=== PATIENT | female | born 1960 | race Asian ===

== ENCOUNTER → 2016-12-05 | Outpatient (CLI) | payer BC ==
--- NOTE | 2016-12-05 09:25 | DIAGNOSTIC IMAGING REPORT ---
ABDOMEN COMPLETE (US) CLINICAL HISTORY: Epigastric pain. Family history of colon cancer. Rectal bleed. COMPARISON STUDY: No previous studies for comparison. FINDINGS: No hepatic lesions are identified by sonography. Liver echogenicity is at the upper limits of normal. There is no biliary ductal dilatation. There are no gallstones. The pancreas is sonographically normal. The size of the spleen is normal, measuring 9.5 cm in maximal dimension. The right kidney measures 10.5 cm and the left measures 9.3 cm. There is no hydronephrosis. A 2.4 cm lesion arising from the upper pole of the right kidney has low level echoes. This favors a cyst. There is no color flow within this lesion. The caliber of the abdominal aorta is normal. Visualized portions of the IVC are patent. IMPRESSION: 1. No gallstones or biliary ductal dilatation. 2. No hydronephrosis. 3. 2.4 cm lesion arising from the upper pole of the right kidney. Low level echoes within this lesion are probably artifactual. A cyst is favored. A follow-up renal ultrasound in 6 months is recommended. Electronically signed by: Cuate Castle M.D. 12/05/2016 9:23 AM Dictated Date/Time: 12/05/2016 9:17 AM
== END | disposition home or self-care (01) ==
LOC: C.ULTR 08:30
PROVIDERS: ATTEND Internal Medicine Gastroenterology
DX: K62.5 Hemorrhage of anus and rectum (principal); Z80.0 Family history of malignant neoplasm of digestive organs; R10.13 Epigastric pain

== ENCOUNTER → 2017-02-20 | Outpatient (CLI) | payer BC | END | disposition home or self-care (01) | LOC: C.PAPS 14:17 | PROVIDERS: ATTEND Obstetrics & Gynecology | DX: Z01.419 Encounter for gynecological examination (general) (routine) without abnormal findings (principal) ==

== ENCOUNTER → 2017-04-08 | Outpatient (CLI) | payer BC ==
--- NOTE | 2017-04-09 14:06 | MAMMOGRAPHY REPORT ---
BILATERAL DIGITAL SCREENING MAMMOGRAM TOMOSYNTHESIS WITH CAD: 04/08/2017 CLINICAL HISTORY: Routine screening. Patient has no complaints. TECHNIQUE: Breast tomosynthesis in addition to standard 2D mammography was performed. Current study was also evaluated with a Computer Aided Detection (CAD) system. COMPARISON: Comparison is made to exams dated: 06/29/2015 mammogram, 05/02/2014 mammogram - [facility], and 08/09/2012 mammogram - [facility]. BREAST COMPOSITION: The tissue of both breasts is heterogeneously dense, which may obscure small mas ses. FINDINGS: The parenchymal pattern is unchanged. No developing mass, architectural distortion or clus ter of suspicious microcalcifications is seen in either breast. IMPRESSION: ACR BI-RADS CATEGORY 2: BENIGN There is no mammographic evidence of malignancy. A 1 year screening mammogram is recommended. The pa tient will receive written notification of the results. Approximately 10% of breast cancers are not detected with mammography. A negative mammographic report should not delay biopsy if a clinically suggestive mass is present. Wendy Boyd M.D. ay/:04/08/2017 15:46:11 Enrollment Services Vice President: Julieth HENDRICKS(Philomena)(Ludin), [facility] letter sent: Normal 1/2 BI-RADS Code: ACR BI-RADS Category 2: Benign
== END | disposition home or self-care (01) ==
LOC: C.MAMM 14:57
PROVIDERS: ATTEND Obstetrics & Gynecology
DX: Z12.31 Encounter for screening mammogram for malignant neoplasm of breast (principal)

== ENCOUNTER → 2017-05-05 | Outpatient (CLI) | payer BC ==
--- NOTE | 2017-05-05 15:47 | DIAGNOSTIC IMAGING REPORT ---
(RENAL)RETROPERITONEA COMP HISTORY: Renal mass RENAL LESION COMPARISON: 12/05/2016 FINDINGS: Right kidney: Maximum dimension 12.3 cm. 2.5 cm hypoechoic nodule upper pole. Normal corticomedullary differentiation and cortical thickness. Left kidney: Maximum dimension 11.1 cm. No evidence for hydronephrosis. Normal corticomedullary differentiation and cortical thickness. Bladder: No bladder wall thickening. The bilateral ureteral jets were identified. IMPRESSION: 1. Unchanging 2.5 cm hypoechoic density superior aspect right kidney. 2. Multiphase CT evaluation is suggested to exclude the possibility of a solid lesion versus cyst. 3. Study is otherwise negative The above report was generated using voice recognition software. It may contain grammatical, syntax or spelling errors. Electronically signed by: Rudy Sierra M.D. 05/05/2017 3:46 PM Dictated Date/Time: 05/05/2017 3:44 PM
== END | disposition home or self-care (01) ==
LOC: C.ULTRBC 15:10
PROVIDERS: ATTEND Family Medicine
DX: N28.9 Disorder of kidney and ureter, unspecified (principal)

== ENCOUNTER → 2017-05-11 | Outpatient (CLI) | payer BC ==
[~2017-05-11] MED LIST: OPTIRAY 320 IV PRN
--- NOTE | 2017-05-11 13:47 | DIAGNOSTIC IMAGING REPORT ---
ABDOMEN COMBO CT DOSE: 604.02 mGycm HISTORY: Renal mass RENAL LESION TECHNIQUE: Multiaxial CT images of the abdomen was performed pre and post intravenous contrast enhancement. A dose lowering technique was utilized adhering to the principles of ALARA. COMPARISON STUDY: Ultrasound dated 05/05/2017. FINDINGS: Lung bases are clear. Liver spleen and pancreas appear unremarkable. Left kidney is negative for hydronephrosis. There is a 5 mm cyst is medial aspect. Superior aspect of the right kidney demonstrates a 2.5 cm well-circumscribed hypodensity. Hounsfield units on the nonenhanced bases are 33. These increase to 72 during the arterial phase and diminished to 49 on delayed images. There are no significant filling defects within the renal collecting systems. There is a 5 mm cyst medial aspect of the right kidney. Visualized components of the ureters are unremarkable. Bowel pattern is nonobstructive. IMPRESSION: 1. 2.5 cm hyperdense renal nodule at the superior pole demonstrating postcontrast enhancement as discussed. 2. This demonstrates moderate postcontrast enhancement and mild washout configuration 3. A neoplastic process must be considered, with neoplasm the diagnosis of exclusion. 4. Study is otherwise unremarkable. The above report was generated using voice recognition software. It may contain grammatical, syntax or spelling errors. Electronically signed by: Rudy Sierra M.D. 05/11/2017 1:45 PM Dictated Date/Time: 05/11/2017 1:40 PM
== END | disposition home or self-care (01) ==
LOC: C.CTS 13:02
PROVIDERS: ATTEND Family Medicine
DX: N28.9 Disorder of kidney and ureter, unspecified (principal)

== ENCOUNTER → 2017-11-30 | Outpatient (CLI) | payer OTHER | END | disposition home or self-care (01) | LOC: C.PATHSPEC 14:01 | PROVIDERS: ATTEND Dentist Endodontics | DX: K04.90 Unspecified diseases of pulp and periapical tissues (principal) ==

== ENCOUNTER → 2018-03-10 | Outpatient (CLI) | payer OTHER | END | disposition home or self-care (01) | LOC: C.PAPS 18:12 | PROVIDERS: ATTEND Obstetrics & Gynecology | DX: Z12.4 Encounter for screening for malignant neoplasm of cervix (principal) ==